=== PATIENT | female | born 1985 | race Caucasian/White ===

== ENCOUNTER 2017-01-21 02:16 | Emergency (ER) | payer MEDICAID, OTHER ==
[2017-01-21] MEDS ORDERED: OLANZapine 10 MG/2 ML VIAL IM ONE ×2 (02:33→02:46)
--- NOTE | 2017-01-21 02:33 | EDPHY ---
H & P - Personal History Tetanus Vaccine Date: <10 years - Medical/Surgical History Hx Asthma: No Hx Chronic Respiratory Disease: No Hx Diabetes: No Hx Cardiac Disease: No Hx Renal Disease: No Hx Cirrhosis: No Hx Alcoholism: No Hx HIV/AIDS: No Hx Splenectomy or Spleen Trauma: No Other PMH: bipolar - Social History Smoking Status: Former smoker Time Seen by Provider: 01/21/17 02:28 HPI/ROS: Chief Complaint: Altered mental status, substance abuse HPI: 31-year-old woman brought in from home with altered mental status. EMS was initially called the son wrist the house for a decreased level consciousness. On arrival patient was waxing and waning be from a decreased level consciousness to being very agitated. Patient admits to using methamphetamine. She has also been using more for trazodone and Seroquel because she has been able to sleep. Patient states she returned from outpatient rehab about a month ago but has since started using methamphetamine again. Denies any suicidal or homicidal ideation at this time. Patient was very agitated for EMS and received 2.5 mg of Versed IV. Denies any fevers or chills. No chest pain shortness of breath. Does have a history of bipolar disorder for which she takes lithium. I reviewed her lithium bottle and there are no missing pills at this time. ROS: 10 point Review of Systems is negative except as noted in the HPI. PMH: Substance abuse Social History: Positive smoking, no alcohol, positive methamphetamine use Family History: non-contributory Physical Exam: Gen: Awake, Alert, agitated, appears under the influence of substances, not able to carry on a conversation HEENT: Nose: no rhinorrhea Eyes: PERRLA, EOMI Mouth: Moist mucosa Neck: Supple, no JVD Chest: nontender, lungs clear to auscultation Heart: S1, S2 normal, no murmur Abd: Soft, non-tender, no guarding Back: no CVA tenderness, no midline tenderness Ext: no edema, non-tender Skin: no rash Neuro: CN II-XII intact, Sensation grossly intact, Strength 5/5 in bilateral upper and lower extremities (Godfrey Juárez) Constitutional: Initial Vital Signs Temperature (C) 36.7 C 01/21/17 02:25 Heart Rate 107 H 01/21/17 02:25 Respiratory Rate 16 01/21/17 02:25 Blood Pressure 116/70 01/21/17 02:25 O2 Sat (%) 97 01/21/17 02:25 O2 Delivery Mode Room Air O2 (L/minute) 2 Allergies/Adverse Reactions: No Known Allergies Allergy (Unverified 01/21/17 02:38) Home Medications: Medication Instructions Recorded [place] Carbonate ER [Eskalith Cr 900 mg PO HS 07/24/15 450 mg (*)] Lurasidone HCl [Latuda] 40 mg PO HS 07/24/15 QUEtiapine FUMARATE [Seroquel 200 700 mg PO HS 07/24/15 mg (*)] metFORMIN HCL [Glucophage 500 mg 1,000 mg PO HS 07/24/15 (*)] Medical Decision Making ED Course/Re-evaluation: Patient has been placed on a detainer by me. Labs have been sent. She is getting agitated and received Zyprexa 10 mg IM. [address] Hyde pending metabolism of methamphetamine and reassessment. (Godfrey Juárez) Other Provider: Patient signed out to me at 0700. On re-evaluation at 930, patient is sober, adamantly denies any suicidal thoughts and would like to go home. She has a friend present in room who will drive her home. Per plan from Dr. Juárez, patient will be discharged home. (Pavan Hyde) - Data Points Laboratory Results: Laboratory Results 01/21/17 02:34 01/21/17 02:34 01/21/17 01/21/17 01/21/17 05:08 02:34 02:34 WBC RBC Hgb Hct MCV MCH MCHC RDW Plt Count MPV Neut % (Auto) Lymph % (Auto) Ramsey % (Auto) Eos % (Auto) Baso % (Auto) Nucleat RBC Rel Count Absolute Neuts (auto) Absolute Lymphs (auto) Absolute Monos (auto) Absolute Eos (auto) Absolute Basos (auto) Absolute Nucleated RBC Immature Gran % Immature Gran # Sodium 140 mEq/L mEq/L (134-144) Potassium 5.1 mEq/L mEq/L (3.5-5.2) Chloride 103 mEq/L mEq/L (97-110) Carbon Dioxide 20 mEq/l L mEq/l (22-31) Anion Gap 17 mEq/L H mEq/L (8-16) BUN 18 mg/dL mg/dL (7-23) Creatinine 1.2 mg/dL H mg/dL (0.6-1.0) Estimated GFR 53 Glucose 78 mg/dL mg/dL (70-100) Calcium 9.8 mg/dL mg/dL (8.5-10.4) Beta HCG, Qual NEGATIVE Urine Opiates Screen NEGATIVE (NEGATIVE) Acetaminophen < 10 mcg/mL L mcg/mL (10-30) Urine Barbiturates NEGATIVE (NEGATIVE) Ur Phencyclidine Scrn NEGATIVE (NEGATIVE) Ur Amphetamine Screen NON-NEGATIVE H (NEGATIVE) U Benzodiazepines Scrn NEGATIVE (NEGATIVE) [place] 0.4 mEq/L L mEq/L (0.6-1.2) Urine Cocaine Screen NEGATIVE (NEGATIVE) U Marijuana (THC) Screen NON-NEGATIVE H (NEGATIVE) Ethyl Alcohol < 10 mg/dL mg/dL (0-10) 01/21/17 02:34 WBC 9.20 10^3/uL 10^3/uL (3.80-9.50) RBC 4.44 10^6/uL 10^6/uL (4.18-5.33) Hgb 13.3 g/dL g/dL (12.6-16.3) Hct 41.1 % % (38.0-47.0) MCV 92.6 fL fL (81.5-99.8) MCH 30.0 pg pg (27.9-34.1) MCHC 32.4 g/dL g/dL (32.4-36.7) RDW 13.2 % % (11.5-15.2) Plt Count 263 10^3/uL 10^3/uL (150-400) MPV 9.7 fL fL (8.7-11.7) Neut % (Auto) 35.4 % L % (39.3-74.2) Lymph % (Auto) 50.9 % H % (15.0-45.0) Ramsey % (Auto) 11.1 % % (4.5-13.0) Eos % (Auto) 1.6 % % (0.6-7.6) Baso % (Auto) 0.7 % % (0.3-1.7) Nucleat RBC Rel Count 0.0 % % (0.0-0.2) Absolute Neuts (auto) 3.26 10^3/uL 10^3/uL (1.70-6.50) Absolute Lymphs (auto) 4.68 10^3/uL H 10^3/uL (1.00-3.00) Absolute Monos (auto) 1.02 10^3/uL H 10^3/uL (0.30-0.80) Absolute Eos (auto) 0.15 10^3/uL 10^3/uL (0.03-0.40) Absolute Basos (auto) 0.06 10^3/uL 10^3/uL (0.02-0.10) Absolute Nucleated RBC 0.00 10^3/uL 10^3/uL (0-0.01) Immature Gran % 0.3 % % (0.0-1.1) Immature Gran # 0.03 10^3/uL 10^3/uL (0.00-0.10) Sodium Potassium Chloride Carbon Dioxide Anion Gap BUN Creatinine Estimated GFR Glucose Calcium Beta HCG, Qual Urine Opiates Screen Acetaminophen Urine Barbiturates Ur Phencyclidine Scrn Ur Amphetamine Screen U Benzodiazepines Scrn [place] Urine Cocaine Screen U Marijuana (THC) Screen Ethyl Alcohol Medications Given: Discontinued Medications Olanzapine (Zyprexa Im Injection) 10 mg IM EDNOW ONE Stop: 01/21/17 02:47 Last Admin: 01/21/17 02:47 Dose: 10 mg Departure - Departure Disposition: Home, Routine, Self-Care Clinical Impression: Methamphetamine abuse Condition: Good Instructions: Polysubstance Abuse (ED) Additional Instructions: 1. Please refrain from abusing drugs. 2. Return for any worsening of condition or further concerns. Referrals: Patient,NotPresent [Unknown] - As per Instructions
[2017-01-21 02:37] LABS: % IMMATURE GRANULYOCYTES 0.3 % (0.0-1.1); ABSOLUTE IMMATURE GRANULOCYTES 0.03 10^3/uL (0.00-0.10); ADD DIFF? NO; ADD MORPH? NO; ADD SCAN? NO; ATYPICAL LYMPHOCYTE FLAG 50 (0-99); FRAGMENT RBC FLAG 0 (0-99); HEMATOCRIT 41.1 % (38.0-47.0); HEMOGLOBIN 13.3 g/dL (12.6-16.3); LEFT SHIFT FLG 0 (0-99); LIPEMIA HEMOLYSIS FLAG 80 (0-99); MEAN CELL HEMOGLOBIN CONCENTR. 32.4 g/dL (32.4-36.7); MEAN CELL VOLUME 92.6 fL (81.5-99.8); MEAN PLATELET VOLUME 9.7 fL (8.7-11.7); PLATELET CLUMPS FLAG 10 (0-99); PLATELET COUNT 263 10^3/uL (150-400); RED BLOOD CELL COUNT 4.44 10^6/uL (4.18-5.33); RED CELL DISTRIBUTION WIDTH 13.2 % (11.5-15.2)
[2017-01-21 02:40] VITALS: TEMP 98.1
[2017-01-21 02:56] LABS: ANION GAP 17 mEq/L (8-16); CALCIUM 9.8 mg/dL (8.5-10.4); CARBON DIOXIDE 20 mEq/l (22-31); CHLORIDE 103 mEq/L (97-110); CREATININE 1.2 mg/dL (0.6-1.0); ETHANOL SERUM < 10 mg/dL (0-10); GLOMERULAR FILTRATION RATE 53; GLUCOSE 78 mg/dL (70-100); LITHIUM 0.4 mEq/L (0.6-1.2); POTASSIUM 5.1 mEq/L (3.5-5.2); SODIUM 140 mEq/L (134-144)
[2017-01-21 08:33] VITALS: BP 126/72; PULSE 70; RESP 14; O2SAT 97
== END 2017-01-21 09:36 | disposition home or self-care (01) ==
LOC: EDUNIT#
DX: F15.10 Other stimulant abuse, uncomplicated (principal); Z87.891 Personal history of nicotine dependence
CPT/HCPCS: 80305; G0480

== ENCOUNTER 2017-03-03 17:55 | Emergency (ER) | payer MEDICAID ==
[2017-03-03] MEDS ORDERED: LORazepam 2 MG/ML INJ IVP ONE ×4 (18:08→20:49)
[2017-03-03] MEDS ORDERED: ONDANSETRON 4 MG/2 ML VIAL IVP ONE (18:18)
--- NOTE | 2017-03-03 18:18 | EDPHY ---
H & P Smoking Status: Former smoker Time Seen by Provider: 03/03/17 18:02 HPI/ROS: Chief complaint. Agitation HPI. 31-year-old female with history of polysubstance abuse presents emergency department with anxiety, agitation. Last use of methamphetamine and heroin was 2 days ago after 2 months of moderate use. She has mostly been using her her bipolar medication. She also has been smoking marijuana trying to alleviate her withdrawal symptoms. She had some vomiting and diarrhea today. Otherwise not ill with fever or cough. No chest discomfort or trouble breathing. Crampy abdominal pain. Denies injuries. She has had similar symptoms previously ROS Constitutional. Agitation Eyes. no problems with vision ENT. no sore throat, no nasal drainage Cardiovascular. no chest pain Respiratory. no shortness of breath, no cough Abdominal. Crampy abdominal pain vomiting and diarrhea . no problems urinating MS. no calf pain/swelling, no neck/back pain, no joint pain Skin. no rash Lymph. no swollen glands Neuro. no headache, no dizziness, no difficulty walking or with speech (Sanford Gu) Past Medical/Surgical History: Bipolar illness (Sanford Gu) Social History: Single, nonsmoker, no recent alcohol (Sanford Gu) Physical Exam: General Appearance: Alert, agitated well-developed female moderate distress. Vital signs are stable Eyes: Pupils equal and round no pallor or injection. ENT, Mouth: Mucous membranes are moist. Respiratory: There are no retractions, lungs are clear to auscultation. Cardiovascular: Regular rate and rhythm. Gastrointestinal: Abdomen is soft and nontender, no masses, bowel sounds normal. Neurological: Awake and alert, sensory and motor exams grossly normal. Skin: Warm and dry, no rashes. Musculoskeletal: Neck is supple nontender. Extremities symmetrical, full range of motion. Psychiatric: Patient is oriented. There is agitation (Sanford Gu) Constitutional: Initial Vital Signs Temperature (C) 36.8 C 03/03/17 18:06 Heart Rate 81 03/03/17 18:06 Respiratory Rate 15 03/03/17 18:06 Blood Pressure 136/93 H 03/03/17 18:06 O2 Sat (%) 100 03/03/17 18:06 O2 Delivery Mode Room Air Allergies/Adverse Reactions: No Known Allergies Allergy (Verified 03/03/17 18:05) Home Medications: Medication Instructions Recorded [place] Carbonate ER [Eskalith Cr 900 mg PO BID 07/24/15 450 mg (*)] QUEtiapine FUMARATE [Seroquel 200 50 mg PO HS 07/24/15 mg (*)] Promethazine HCl [Phenergan 25mg 25 mg PO TID PRN #10 tab 03/03/17 (*)] clonIDINE [Catapres (*)] 0.1 mg PO TID #15 tab 03/03/17 traZODone 100 mg PO DAILY AT 9PM 03/03/17 Medical Decision Making Procedures: IV normal saline. Ativan and Zofran (Sanford Gu) ED Course/Re-evaluation: Patient has been given multiple rounds of Ativan IV. She is now calm and sleeping. She is placed on a detained in her for mental health evaluation. Re-evaluation again at 9:00 p.m. and patient is vomiting and agitated. She is given Phenergan and IV Ativan. She is placed on an M1 hold by me House mate who is with her is going to go home and collect her medications to give specific doses especially her nighttime bipolar illness doses. She will be given her doses Patient given her nighttime meds which include Seroquel 50 mg, trazodone 100 mg , lithium 450 mg (Sanford Gu) 5:40 a.m.- Patient has been stable during my shift sleeping for the most part. She is now awake and conversant. Family will come to pick her up from the emergency department. (Yarelis Ross) 10:00 p.m.-I assumed care of this patient at shift change. Patient is on an M1 hold for grave disability . 10:40 p.m.-patient's nurse discussed the patient with me. She has a history of heroin abuse and now is in heroin withdrawal. She came to the emergency department because she wished to be helped with her heroin withdrawal. She denies suicidal or homicidal ideation. I spoke with the patient. She is now quite drowsy after receiving Ativan 1 mg IV x4. She would like to have outpatient treatment of heroin withdrawal. I gave her a dose of clonidine 0.1 mg orally. Because of her drowsiness, she is not ready to leave the emergency department now. I have spoken with the ED charge nurse and will watch the patient in the emergency department tonight until she is more alert. At that point, we will consider discharging her home on Phenergan, clonidine and possibly Valium for opiate withdrawal. I do not feel that this patient meets criteria for a 72 hour mental health hold. I vacated the mental health hold. ( Lilia Valencia) Differential Diagnosis: Polysubstance abuse with ingestion and now withdrawal by history. History of bipolar illness. Not able to care for herself. Mental health evaluation is pending (Sanford Gu) Care Turn Over: Dr. Valencia at 2130 (Sanford Gu) - Data Points Laboratory Results: Laboratory Results 03/03/17 17:45 03/03/17 17:45 Medications Given: Discontinued Medications Clonidine (Catapres) 0.1 mg PO EDNOW ONE Stop: 03/03/17 22:40 Last Admin: 03/03/17 22:42 Dose: 0.1 mg Sodium Chloride (Ns) 1,000 mls @ 0 mls/hr IV ONCE ONE; Wide Open PRN Reason: Protocol Stop: 03/03/17 20:46 Last Admin: 03/03/17 20:48 Dose: 1,000 mls [place] Carbonate ([place] Carbonate) 450 mg PO BID LYNETTE Stop: 08/30/17 21:29 Last Admin: 03/03/17 22:24 Dose: 450 mg Lorazepam (Ativan Injection) 1 mg IVP EDNOW ONE Stop: 03/03/17 18:09 Last Admin: 03/03/17 18:11 Dose: 1 mg Lorazepam (Ativan Injection) 1 mg IVP EDNOW ONE Stop: 03/03/17 18:55 Last Admin: 03/03/17 18:57 Dose: 1 mg Lorazepam (Ativan Injection) 1 mg IVP EDNOW ONE Stop: 03/03/17 19:26 Last Admin: 03/03/17 19:27 Dose: 1 mg Lorazepam (Ativan Injection) 1 mg IVP EDNOW ONE Stop: 03/03/17 20:50 Last Admin: 03/03/17 20:53 Dose: 1 mg Ondansetron HCl (Zofran) 4 mg IVP EDNOW ONE Stop: 03/03/17 18:19 Last Admin: 03/03/17 18:32 Dose: 4 mg Promethazine HCl (Phenergan) 12.5 mg IVP ONCE ONE Stop: 03/03/17 20:50 Last Admin: 03/03/17 20:53 Dose: 12.5 mg Quetiapine Fumarate (Seroquel) 50 mg PO ONCE ONE Stop: 03/03/17 21:30 Last Admin: 03/03/17 22:24 Dose: 50 mg Trazodone HCl (Trazodone) 100 mg PO HS LYNETTE Stop: 08/30/17 21:29 Last Admin: 03/03/17 22:24 Dose: 100 mg Departure - Departure Disposition: Home, Routine, Self-Care Clinical Impression: Polysubstance abuse, Heroin withdrawal Bipolar illness Qualifiers: Active/Remission status: currently active Current bipolar episode type: mixed Current episode severity: severe Psychotic features: without psychotic features Qualified Code(s): F31.63 - Bipolar disorder, current episode mixed, severe, without psychotic features Condition: Fair Instructions: Narcotic Abuse (ED) Additional Instructions: For heroin withdrawal resources, go to [email or web address]. Referrals: [facility] [Clinic] - As per Instructions KEYONNA LYNCH [Medical Doctor] - 2-3 days without fail Prescriptions: clonIDINE [Catapres (*)] 0.1 mg PO TID #15 tab Promethazine HCl [Phenergan 25mg (*)] 25 mg PO TID PRN #10 tab PRN Reason: nausea
[2017-03-03 18:23] LABS: % IMMATURE GRANULYOCYTES 0.4 % (0.0-1.1); ABSOLUTE IMMATURE GRANULOCYTES 0.05 10^3/uL (0.00-0.10); ADD DIFF? NO; ADD MORPH? NO; ADD SCAN? NO; ATYPICAL LYMPHOCYTE FLAG 20 (0-99); FRAGMENT RBC FLAG 0 (0-99); HEMATOCRIT 44.9 % (38.0-47.0); LEFT SHIFT FLG 0 (0-99); LIPEMIA HEMOLYSIS FLAG 80 (0-99); MEAN CELL HEMOGLOBIN 29.7 pg (27.9-34.1); MEAN CELL HEMOGLOBIN CONCENTR. 33.4 g/dL (32.4-36.7); MEAN CELL VOLUME 88.9 fL (81.5-99.8); MEAN PLATELET VOLUME 10.3 fL (8.7-11.7); PLATELET CLUMPS FLAG 30 (0-99); PLATELET COUNT 333 10^3/uL (150-400); RED BLOOD CELL COUNT 5.05 10^6/uL (4.18-5.33); RED CELL DISTRIBUTION WIDTH 13.1 % (11.5-15.2)
[2017-03-03 18:36] LABS: ANION GAP 14 mEq/L (8-16); CALCIUM 10.6 mg/dL (8.5-10.4); CARBON DIOXIDE 20 mEq/l (22-31); CHLORIDE 106 mEq/L (97-110); CREATININE 0.8 mg/dL (0.6-1.0); ETHANOL SERUM < 10 mg/dL (0-10); GLOMERULAR FILTRATION RATE > 60; GLUCOSE 108 mg/dL (70-100); LITHIUM 0.8 mEq/L (0.6-1.2); POTASSIUM 4.3 mEq/L (3.5-5.2); SODIUM 140 mEq/L (134-144)
[2017-03-03 20:18] VITALS: O2SAT 96
[2017-03-03] MEDS ORDERED: NS 1,000 ML IV ONE (20:45)
[2017-03-03] MEDS ORDERED: PROMETHAZINE HCL 25 MG/ML INJ IVP ONE (20:49)
[2017-03-03] MEDS ORDERED: QUEtiapine FUMARATE 50 MG TAB PO ONE (21:29)
[2017-03-03] MEDS ORDERED: traZODone 100 MG TAB PO SCH (21:30)
[2017-03-03] MEDS ORDERED: LITHIUM CARBONATE 300 MG TAB PO SCH (21:30)
[2017-03-04 06:08] VITALS: BP 119/75; PULSE 76; RESP 16; TEMP 97.7
== END 2017-03-04 06:08 | disposition home or self-care (01) ==
LOC: EDUNIT#
DX: F31.63 Bipolar disorder, current episode mixed, severe, without psychotic features (principal); F19.10 Other psychoactive substance abuse, uncomplicated; F11.23 Opioid dependence with withdrawal; E86.9 Volume depletion, unspecified; Z87.891 Personal history of nicotine dependence
CPT/HCPCS: 96374; G0480; J2060; J2405; J2550

== ENCOUNTER 2017-11-21 10:52 | Emergency (ER) | payer MEDICAID ==
[2017-11-21] MEDS ORDERED: NS 1,000 ML IV ONE ×2 (12:29→14:58)
[2017-11-21] MEDS ORDERED: METOCLOPRAMIDE 10 MG/2 ML VIAL IVP ONE (12:49)
[2017-11-21] MEDS ORDERED: PANTOPRAZOLE SODIUM 40 MG VIAL IVP ONE (12:49)
--- NOTE | 2017-11-21 12:49 | EDPHY ---
General - History Smoking Status: Former smoker Time Seen by Provider: 11/21/17 12:40 Narrative: CHIEF COMPLAINT: Nausea, vomiting, abdominal pain HISTORY OF PRESENT ILLNESS: Patient complains of epigastric pain and nausea with vomiting. Symptoms started Tuesday afternoon after eating some shrimp. She says she had multiple episodes of vomiting that was green and yellow. No blood in it. No diarrhea. She did develop some epigastric pain over the past 2 days. It has been constant duration. Worse with intake by mouth. Minimal improvement after vomiting and when NPO. No fever chills but no trauma injury. No constipation or diarrhea. No other associated complaints or modifying factors. REVIEW OF SYSTEMS: Ten systems reviewed and are negative unless otherwise noted in the HPI PCP: None SPECIALISTS: None PAST MEDICAL HISTORY: Bipolar disorder, previous substance abuse PAST SURGICAL HISTORY: No recent surgeries SOCIAL HISTORY: Nonsmoker. Occasional alcohol. Occasional marijuana use. Previously a user of heroin, sober since 2016 FAMILY HISTORY: Noncontributory EXAMINATION General Appearance: Alert, no distress. Well-developed well-nourished Head: normocephalic, atraumatic Eyes: Pupils equal and round, no conjunctival pallor or injection ENT, Mouth: Mucous membranes moist. Neck: Normal inspection, supple, non-tender Respiratory: Lungs are clear to auscultation. No wheezing, rhonchi or crackles Cardiovascular: Regular rate and rhythm. No murmur Gastrointestinal: Abdomen is soft and nondistended. There is mild epigastric tenderness. No guarding. No tympany. No rigidity. No CVA tenderness. Back: non-tender, no bony abnormalities Neurological: A&O, nonfocal, normal gait Skin: Warm and dry, no rash Extremities: Nontender, no pedal edema Psychiatric: Mood and affect normal DIFFERENTIAL DIAGNOSES: Including but not limited to pancreatitis, cholecystitis, cholelithiasis, colitis, gastritis, food-borne illness, gastroenteritis, enteritis MDM: 12:45 p.m. Nausea, vomiting and epigastric pain since Tuesday evening. Abdominal exam is nonacute. Vital signs within normal limits. I have ordered symptomatic medications and Laboratory studies. She may need imaging, but I do not feel she needs emergent imaging at this time. I will re-evaluate after response to medications and laboratory studies returned. 2:30 p.m. Patient re-evaluated. Laboratory studies are unremarkable. She is still complaining of nausea but no pain. Her abdominal exam remains benign. I have ordered further medication and will re-evaluate. 3:25 p.m. Patient re-evaluated. She has tolerated the GI cocktail and promethazine and feels significantly better. She is drinking water without difficulty. She has no abdominal pain. We discussed discharge home with treatment for possible suspected gastritis. We discussed clear liquid diet, slowly advancing as tolerated. We discussed referral to the on-call primary care physician and the on-call interior design assistant. We discussed returning here if she does not have complete resolution of her symptoms within 24 hr. She is comfortable this plan and discharged home stable condition. SUPERVISION: Patient was independently examined, but I discussed the case with my secondary supervising physician Dr. Tucker ([facility]) The patient was evaluated and managed by the physician assistant boys track coach. I have reviewed this chart and I agree with the findings and plan of care as documented , as indicated by my signature. I am the secondary supervising physician. ( Betzy Tucker) - Objective Vital Signs: Initial Vital Signs Temperature (C) 37 C 11/21/17 10:53 Heart Rate 84 11/21/17 10:53 Respiratory Rate 16 11/21/17 10:53 Blood Pressure 113/88 H 11/21/17 10:53 O2 Sat (%) 97 11/21/17 10:53 O2 Delivery Mode Room Air Allergies/Adverse Reactions: No Known Allergies Allergy (Verified 11/22/17 07:01) Home Medications: Medication Instructions Recorded [place] Carbonate ER [Eskalith Cr 900 mg PO BID 07/24/15 450 mg (*)] QUEtiapine FUMARATE [Seroquel 200 50 mg PO HS 07/24/15 mg (*)] Promethazine HCl [Phenergan 25mg 25 mg PO TID PRN #10 tab 03/03/17 (*)] Ondansetron Odt [Zofran Odt 4 mg 4 mg PO Q6 PRN #12 tab 11/21/17 (*)] Promethazine HCl [Phenergan 25mg 25 mg PO Q8 PRN #12 tab 11/21/17 (*)] Sucralfate [Carafate Oral Liquid 10 ml PO QID PRN #240 ml 11/21/17 100 mg/ml] Laboratory Results: Laboratory Results 11/21/17 13:11 11/21/17 13:00 Medications Given: Discontinued Medications Al Hydroxide/Mg Hydroxide (Maalox Susp) 30 ml PO ONCE ONE Stop: 11/21/17 14:38 Last Admin: 11/21/17 14:48 Dose: 30 ml Diphenhydramine HCl (Benadryl Injection) 25 mg IVP EDNOW ONE Stop: 11/21/17 12:50 Last Admin: 11/21/17 12:58 Dose: 25 mg Hyoscyamine Sulfate (Levsin, Hyomax-Sl) 0.25 mg PO ONCE ONE Stop: 11/21/17 14:38 Last Admin: 11/21/17 14:48 Dose: 0.25 mg Sodium Chloride (Ns) 1,000 mls @ 0 mls/hr IV ONCE ONE; Wide Open PRN Reason: Protocol Stop: 11/21/17 12:30 Last Admin: 11/21/17 12:40 Dose: 1,000 mls Sodium Chloride (Ns) 1,000 mls @ 0 mls/hr IV EDNOW ONE; Wide Open PRN Reason: Protocol Stop: 11/21/17 14:59 Last Admin: 11/21/17 15:07 Dose: 1,000 mls Lidocaine (Lidocaine 2% Viscous) 15 ml PO ONCE ONE Stop: 11/21/17 14:38 Last Admin: 11/21/17 14:48 Dose: 15 ml Metoclopramide HCl (Reglan Injection) 10 mg IVP EDNOW ONE Stop: 11/21/17 12:50 Last Admin: 11/21/17 12:58 Dose: 10 mg Pantoprazole Sodium (Protonix) 40 mg IVP EDNOW ONE Stop: 11/21/17 12:50 Last Admin: 11/21/17 12:59 Dose: 40 mg Promethazine HCl (Phenergan) 12.5 mg IVP ONCE ONE Stop: 11/21/17 14:38 Last Admin: 11/21/17 14:47 Dose: 12.5 mg Departure - Departure Disposition: Home, Routine, Self-Care Clinical Impression: Acute gastritis, Epigastric pain, Nausea & vomiting Condition: Good Instructions: Gastritis (ED), Clear Liquid Diet (ED), Epigastric Pain (ED) Additional Instructions: 1. Clear liquid diet, advancing slowly as tolerated 2. Nausea medications as provided and prescribed as needed 3. Carafate as prescribed as needed. Do not take with any other medications 4. Contact the on-call primary care physician as provided 5. Contact the on-call GI physician as provided 6. I would like you to return to this emergency department in 24 hr if you do not have complete resolution of her symptoms. I would like you to return sooner for any Worsening of symptoms or intolerance of liquids by mouth Referrals: Pablo Pacheco MD [Medical Doctor] - As per Instructions Ihsan Stark MD [[facility] [place] Primary Care Provider] - As per Instructions Prescriptions: Ondansetron Odt [Zofran Odt 4 mg (*)] 4 mg PO Q6 PRN #12 tab PRN Reason: Nausea/Vomiting, Use 1st Promethazine HCl [Phenergan 25mg (*)] 25 mg PO Q8 PRN #12 tab PRN Reason: Nausea/Vomiting, Use 1st Sucralfate [Carafate Oral Liquid 100 mg/ml] 10 ml PO QID PRN #240 ml PRN Reason: abdominal pain
[2017-11-21 13:17] LABS: PLATELET COUNT 378 10^3/uL (150-400)
[2017-11-21] MEDS ORDERED: MAG HYDROX/AL HYDROX/SIMETH 30 ML UDCUP PO ONE (14:37)
[2017-11-21] MEDS ORDERED: LIDOCAINE 2% VISCOUS 15 ML UDCUP PO ONE (14:37)
[2017-11-21] MEDS ORDERED: HYOSCYAMINE SULFATE 0.125 MG TAB PO ONE (14:37)
[2017-11-21] MEDS ORDERED: PROMETHAZINE HCL 25 MG/ML INJ IVP ONE (14:37)
[2017-11-21 16:01] VITALS: BP 140/94
== END 2017-11-21 16:01 | disposition home or self-care (01) ==
DX: K29.00 Acute gastritis without bleeding (principal); E86.9 Volume depletion, unspecified
CPT/HCPCS: 96374; G0480; J1200; J2550; J2765

== ENCOUNTER 2017-11-22 06:56 | Emergency (ER) | payer MEDICAID ==
--- NOTE | 2017-11-22 07:16 | EDPHY ---
HPI/HX/ROS/PE/MDM Narrative: CHIEF COMPLAINT: Nausea / Vomiting HPI: This patient is a 31 year old female with history of bipolar disorder and prior substance abuse. She returns to the emergency department today for evaluation of nausea, vomiting, and sharp epigastric pain. He symptoms began , 11/17, after eating shrimp. She has had multiple episodes of greenish yellow emesis. Yesterday, she was evaluated for similar symptoms and discharged home in good condition following relief of her discomfort with a GI cocktail and promethazine. Last night, she was able to eat some broth and water. Overnight, she woke with recurrent nausea and epigastric pains. She had further episodes of vomiting which were not relieved with oral Zofran. She denies hematemesis, diarrhea, hematochezia, melena, or other associated symptoms. No history of abdominal surgery. No fever or recent trauma or other illness. REVIEW OF SYSTEMS: Aside from elements discussed in the HPI, a comprehensive 10-point review of systems was reviewed and is negative. PMH: Bipolar disorder, previous substance abuse SOCIAL HISTORY: Friend at bedside. Nonsmoker. Occasional alcohol and marijuana use. History of heroin abuse, sober since 05/2017. PHYSICAL EXAM: General:Patient is alert, in no acute distress. ENT:Eyes are normal to inspection. ENT inspection normal. Neck: Normal inspection. Full range of motion. Respiratory:No respiratory distress. Breath sounds normal bilaterally. Cardiovascular: Regular rate and rhythm. Strong peripheral pulses. Normal cap refill. Abdomen: Moderate epigastric tenderness. There are no peritoneal signs. There are normal bowel sounds. Back: Normal to inspection. No tenderness to palpation. Skin: Normal color. No rash. Warm and dry. Extremities: Normal appearance. Full range of motion. Neuro: Oriented x3. Normal motor function. Normal sensory function. ED Course: 31 year old female returns to the emergency department with nausea and vomiting. Abdominal exam reveals moderate epigastric tenderness. Plan for labs including CBC, chemistries, liver, lipase, UA. Plan to administer 1L IV NS, 4mg IV Zofran, and 30mg IV Ketorolac for symptom relief. Reviewed past medical records. During yesterday's evaluation in this emergency department, no imaging studies were completed as the patient's abdominal exam was benign at that time. Plan for US abdomen or CT abdomen for further evaluation, pending lab results. 08:05 Patient states her nausea is not relieved with Zofran. Plan to administer 2.5mg IV Haldol. Laboratory studies unremarkable. Plan to proceed with CT abdomen/pelvis for further evaluation. 08:[address] Beltran, radiologist. CT negative for acute processes. 11:30 The patient is now feeling well and would like to go home. Plan to discharge home in good condition. Follow up and return precautions discussed. She is comfortable with this plan. - Data Points Imaging Results: Imaging Impressions Abdomen CT 11/22/17 08:11 Impression: Negative evaluation for appendicitis or other acute intra-abdominal pathology. Findings were communicated by telephone with Dr. Hyde at 11/22/2017 8:53 Imaging: Discussed imaging studies w/ crew caller Radiologist Laboratory Results: Laboratory Results 11/22/17 07:30 11/22/17 07:30 11/22/17 11/22/17 11/22/17 09:18 07:30 07:30 WBC 8.43 10^3/uL 10^3/uL (3.80-9.50) RBC 4.35 10^6/uL 10^6/uL (4.18-5.33) Hgb 12.9 g/dL g/dL (12.6-16.3) Hct 37.9 % L % (38.0-47.0) MCV 87.1 fL fL (81.5-99.8) MCH 29.7 pg pg (27.9-34.1) MCHC 34.0 g/dL g/dL (32.4-36.7) RDW 13.1 % % (11.5-15.2) Plt Count 290 10^3/uL 10^3/uL (150-400) MPV 9.5 fL fL (8.7-11.7) Neut % (Auto) 66.4 % % (39.3-74.2) Lymph % (Auto) 24.8 % % (15.0-45.0) Bureau % (Auto) 7.4 % % (4.5-13.0) Eos % (Auto) 0.5 % L % (0.6-7.6) Baso % (Auto) 0.5 % % (0.3-1.7) Nucleat RBC Rel Count 0.0 % % (0.0-0.2) Absolute Neuts (auto) 5.61 10^3/uL 10^3/uL (1.70-6.50) Absolute Lymphs (auto) 2.09 10^3/uL 10^3/uL (1.00-3.00) Absolute Monos (auto) 0.62 10^3/uL 10^3/uL (0.30-0.80) Absolute Eos (auto) 0.04 10^3/uL 10^3/uL (0.03-0.40) Absolute Basos (auto) 0.04 10^3/uL 10^3/uL (0.02-0.10) Absolute Nucleated RBC 0.00 10^3/uL 10^3/uL (0-0.01) Immature Gran % 0.4 % % (0.0-1.1) Immature Gran # 0.03 10^3/uL 10^3/uL (0.00-0.10) Sodium 141 mEq/L mEq/L (135-145) Potassium 3.3 mEq/L mEq/L (3.3-5.0) Chloride 103 mEq/L mEq/L (97-110) Carbon Dioxide 22 mEq/l mEq/l (22-31) Anion Gap 16 mEq/L mEq/L (8-16) BUN 12 mg/dL mg/dL (7-23) Creatinine 0.8 mg/dL mg/dL (0.6-1.0) Estimated GFR > 60 Glucose 103 mg/dL H mg/dL (70-100) Calcium 9.5 mg/dL mg/dL (8.5-10.4) Total Bilirubin 1.1 mg/dL mg/dL (0.1-1.4) Conjugated Bilirubin 0.4 mg/dL mg/dL (0.0-0.5) Unconjugated Bilirubin 0.7 mg/dL mg/dL (0.0-1.1) AST 16 IU/L IU/L (14-46) ALT 20 IU/L IU/L (9-52) Alkaline Phosphatase 52 IU/L IU/L (38-126) Total Protein 7.1 g/dL g/dL (6.3-8.2) Albumin 4.2 g/dL g/dL (3.5-5.0) Lipase 213 IU/L IU/L (23-300) Urine Color YELLOW Urine Appearance HAZY Urine pH 8.0 H (5.0-7.5) Ur Specific [place] 1.018 (1.002-1.030) Urine Protein NEGATIVE (NEGATIVE) Urine Ketones NEGATIVE (NEGATIVE) Urine Blood NEGATIVE (NEGATIVE) Urine Nitrate NEGATIVE (NEGATIVE) Urine Bilirubin NEGATIVE (NEGATIVE) Urine Urobilinogen NEGATIVE EU EU (0.2-1.0) Ur Leukocyte Esterase NEGATIVE (NEGATIVE) Urine Glucose NEGATIVE (NEGATIVE) Medications Given: Discontinued Medications Haloperidol Lactate (Haldol Injection) 2.5 mg IVP EDNOW ONE Stop: 11/22/17 08:08 Last Admin: 11/22/17 08:12 Dose: 2.5 mg Haloperidol Lactate (Haldol Injection) 2.5 mg IVP EDNOW ONE Stop: 11/22/17 10:51 Last Admin: 11/22/17 10:51 Dose: 2.5 mg Sodium Chloride (Ns) 1,000 mls @ 0 mls/hr IV EDNOW ONE; Wide Open PRN Reason: Protocol Stop: 11/22/17 07:18 Last Admin: 11/22/17 07:37 Dose: 1,000 mls Ketorolac Tromethamine (Toradol) 30 mg IVP EDNOW ONE Stop: 11/22/17 07:35 Last Admin: 11/22/17 07:37 Dose: 30 mg Ondansetron HCl (Zofran) 4 mg IVP EDNOW ONE Stop: 11/22/17 07:35 Last Admin: 11/22/17 07:37 Dose: 4 mg General Initial Vital Signs: Initial Vital Signs Temperature (C) 37.1 C 11/22/17 06:59 Heart Rate 81 11/22/17 06:59 Respiratory Rate 16 11/22/17 06:59 Blood Pressure 134/97 H 11/22/17 06:59 O2 Sat (%) 96 11/22/17 06:59 O2 Delivery Mode Room Air Allergies/Adverse Reactions: No Known Allergies Allergy (Verified 11/22/17 07:01) Home Medications: Medication Instructions Recorded [place] Carbonate ER [Eskalith Cr 900 mg PO BID 07/24/15 450 mg (*)] QUEtiapine FUMARATE [Seroquel 200 50 mg PO HS 07/24/15 mg (*)] Promethazine HCl [Phenergan 25mg 25 mg PO TID PRN #10 tab 03/03/17 (*)] Ondansetron Odt [Zofran Odt 4 mg 4 mg PO Q6 PRN #12 tab 11/21/17 (*)] Promethazine HCl [Phenergan 25mg 25 mg PO Q8 PRN #12 tab 11/21/17 (*)] Sucralfate [Carafate Oral Liquid 10 ml PO QID PRN #240 ml 11/21/17 100 mg/ml] Departure - Departure Disposition: Home, Routine, Self-Care Clinical Impression: Vomiting Qualifiers: Vomiting type: unspecified Vomiting Intractability: non-intractable Nausea presence: with nausea Qualified Code(s): R11.2 - Nausea with vomiting, unspecified Condition: Good Instructions: Acute Nausea and Vomiting (ED) Additional Instructions: 1. Increase fluid intake. Follow a clear liquid diet at first and then introduce bland foods as tolerated. 2. Follow-up with your primary doctor in 2-3 days. 3. Return to the Emergency Department for fever, uncontrollable vomiting or diarrhea, chest pain, shortness of breath, increasing pain, or other worsening of condition. Referrals: Pablo Pacheco MD [Medical Doctor] - As per Instructions Ihsan Stark MD [[facility] [place] Primary Care Provider] - As per Instructions Report Scribed for: Pavan Hyde Report Scribed by: Janette Calhoun Date of Report: 11/22/17 Time of Report: 07:15 Physician Review and Approval Statement: Portions of this note were transcribed by an ED scribe. I personally performed the history, physical exam, and medical decision making; and confirm the accuracy of the information in the transcribed note.
[2017-11-22] MEDS ORDERED: NS 1,000 ML IV ONE (07:17)
[2017-11-22] MEDS ORDERED: KETOROLAC 30 MG/1 ML SDV IVP ONE (07:34)
[2017-11-22] MEDS ORDERED: ONDANSETRON 4 MG/2 ML VIAL IVP ONE (07:34)
[2017-11-22 07:54] LABS: PLATELET COUNT 290 10^3/uL (150-400)
[2017-11-22] MEDS ORDERED: HALOPERIDOL LACT 5 MG/ML INJ IVP ONE ×2 (08:07→10:50)
[2017-11-22] MEDS ORDERED: IOPAMIDOL (ISOVUE-300) 100 ML BTL ONE (08:25)
[2017-11-22] MEDS ORDERED: HALOPERIDOL LACT 5 MG/ML INJ ONE (10:49)
[2017-11-22 11:38] VITALS: BP 139/94
== END 2017-11-22 11:48 | disposition home or self-care (01) ==
DX: R11.2 Nausea with vomiting, unspecified (principal); E86.9 Volume depletion, unspecified
CPT/HCPCS: 96374; J1630; J1885; J2405; Q9967

== ENCOUNTER 2017-11-27 07:21 | Emergency (ER) | payer MEDICAID ==
--- NOTE | 2017-11-27 07:46 | EDPHY ---
H & P Time Seen by Provider: 11/27/17 07:40 HPI/ROS: CHIEF COMPLAINT: Vomiting HISTORY OF PRESENT ILLNESS: Patient is a 31-year-old female who presents emergency department"the same as the last time."Patient states she has epigastric discomfort. She has had numerous episodes of nonbloody emesis. Patient denies fevers or chills. No dysuria frequency. No diarrhea. The patient states she smoked THC to try to help her symptoms. She smokes THC regularly. REVIEW OF SYSTEMS: My complete review of systems is negative except as mentioned in the HPI. Past Medical/Surgical History: Includes bipolar disorder, previous substance abuse including methamphetamine and heroin. She denies methamphetamine and heroin at this time. Smoking Status: Former smoker Physical Exam: Vitals noted GENERAL: Mildly anxious, no acute distress, alert. HEENT: Eyes normal to inspection, normal pharynx, no signs of dehydration. NECK: No thyromegaly, no lymphadenopathy, supple. RESPIRATORY: Clear to auscultation bilaterally, no rales, rhonchi or wheezing. CVS: Regular rate and rhythm, no rubs, murmurs, or gallops. ABDOMEN: Soft, nontender, nondistended, no organomegaly. Benign BACK: Normal to inspection, no CVA tenderness. SKIN: Normal color, no rash, warm, dry. No pallor. EXTREMITIES: No pedal edema, no calf tenderness, no Homans sign or cords, no joint swelling. NEURO/PSYCH: Alert and oriented, normal mood and affect, normal motor sensory exam. Constitutional: Initial Vital Signs Temperature (C) 37.1 C 11/27/17 07:23 Heart Rate 89 11/27/17 07:23 Respiratory Rate 16 11/27/17 07:23 Blood Pressure 147/94 H 11/27/17 07:23 O2 Sat (%) 98 11/27/17 07:23 O2 Delivery Mode Room Air Allergies/Adverse Reactions: No Known Allergies Allergy (Verified 11/27/17 07:26) Home Medications: Medication Instructions Recorded [place] Carbonate ER [Eskalith Cr 900 mg PO BID 07/24/15 450 mg (*)] QUEtiapine FUMARATE [Seroquel 200 50 mg PO HS 07/24/15 mg (*)] Promethazine HCl [Phenergan 25mg 25 mg PO TID PRN #10 tab 03/03/17 (*)] Ondansetron Odt [Zofran Odt 4 mg 4 mg PO Q6 PRN #12 tab 11/21/17 (*)] Promethazine HCl [Phenergan 25mg 25 mg PO Q8 PRN #12 tab 11/21/17 (*)] Sucralfate [Carafate Oral Liquid 10 ml PO QID PRN #240 ml 11/21/17 100 mg/ml] Medical Decision Making ED Course/Re-evaluation: In the emergency department I discussed possible etiologies with the patient and her father. I answered all her questions. I discussed THC use. An IV was placed. Laboratory studies were obtained. Patient states that held worked well for symptoms. The patient was given Haldol and normal saline. Patient's white count is 9. The patient's chemistry panel is notable for slightly low CO2 at 19. The patient's LFTs and lipase are normal. is negative. I rechecked the patient while here. She was doing better after the medication. On recheck the patient's abdomen is soft, nontender nondistended. Patient was given warnings prior to leaving. She will return with worsening symptoms. Differential Diagnosis: My differential includes but is not limited to pancreatitis, cholecystitis, small-bowel obstruction, cyclic vomiting syndrome, dehydration, perforation, peptic ulcer disease, GERD - Data Points Laboratory Results: Laboratory Results 11/27/17 07:40 11/27/17 07:40 11/27/17 11/27/17 11/27/17 07:40 07:40 07:40 WBC 9.92 10^3/uL H 10^3/uL (3.80-9.50) RBC 4.42 10^6/uL 10^6/uL (4.18-5.33) Hgb 13.2 g/dL g/dL (12.6-16.3) Hct 38.6 % % (38.0-47.0) MCV 87.3 fL fL (81.5-99.8) MCH 29.9 pg pg (27.9-34.1) MCHC 34.2 g/dL g/dL (32.4-36.7) RDW 13.3 % % (11.5-15.2) Plt Count 337 10^3/uL 10^3/uL (150-400) MPV 9.7 fL fL (8.7-11.7) Neut % (Auto) 68.3 % % (39.3-74.2) Lymph % (Auto) 22.1 % % (15.0-45.0) [place] % (Auto) 7.1 % % (4.5-13.0) Eos % (Auto) 1.2 % % (0.6-7.6) Baso % (Auto) 0.4 % % (0.3-1.7) Nucleat RBC Rel Count 0.0 % % (0.0-0.2) Absolute Neuts (auto) 6.78 10^3/uL H 10^3/uL (1.70-6.50) Absolute Lymphs (auto) 2.19 10^3/uL 10^3/uL (1.00-3.00) Absolute Monos (auto) 0.70 10^3/uL 10^3/uL (0.30-0.80) Absolute Eos (auto) 0.12 10^3/uL 10^3/uL (0.03-0.40) Absolute Basos (auto) 0.04 10^3/uL 10^3/uL (0.02-0.10) Absolute Nucleated RBC 0.00 10^3/uL 10^3/uL (0-0.01) Immature Gran % 0.9 % % (0.0-1.1) Immature Gran # 0.09 10^3/uL 10^3/uL (0.00-0.10) Sodium 141 mEq/L mEq/L (135-145) Potassium 3.7 mEq/L mEq/L (3.3-5.0) Chloride 107 mEq/L mEq/L (97-110) Carbon Dioxide 19 mEq/l L mEq/l (22-31) Anion Gap 15 mEq/L mEq/L (8-16) BUN 11 mg/dL mg/dL (7-23) Creatinine 0.8 mg/dL mg/dL (0.6-1.0) Estimated GFR > 60 Glucose 118 mg/dL H mg/dL (70-100) Calcium 9.6 mg/dL mg/dL (8.5-10.4) Total Bilirubin 0.4 mg/dL mg/dL (0.1-1.4) Conjugated Bilirubin 0.4 mg/dL mg/dL (0.0-0.5) Unconjugated Bilirubin 0.0 mg/dL mg/dL (0.0-1.1) AST 19 IU/L IU/L (14-46) ALT 19 IU/L IU/L (9-52) Alkaline Phosphatase 57 IU/L IU/L (38-126) Total Protein 6.8 g/dL g/dL (6.3-8.2) Albumin 4.0 g/dL g/dL (3.5-5.0) Lipase 198 IU/L IU/L (23-300) Beta HCG, Qual NEGATIVE Medications Given: Discontinued Medications Haloperidol Lactate (Haldol Injection) 2.5 mg IVP EDNOW ONE Stop: 11/27/17 07:48 Last Admin: 11/27/17 07:53 Dose: 2.5 mg Sodium Chloride (Ns) 1,000 mls @ 0 mls/hr IV ONCE ONE PRN Reason: Wide Open Stop: 11/27/17 07:49 Last Admin: 11/27/17 07:52 Dose: 1,000 mls Departure - Departure Disposition: Home, Routine, Self-Care Clinical Impression: Abdominal pain Qualifiers: Abdominal location: epigastric Qualified Code(s): R10.13 - Epigastric pain Condition: Good Instructions: Acute Nausea and Vomiting (ED), Acute Abdominal Pain (ED) Additional Instructions: Return with increasing pain, vomiting, inability to tolerate oral intake or any other concerns. Referrals: Pavan Ortiz MD [Medical Doctor] - 5-7 days, call for appt.
[2017-11-27] MEDS ORDERED: HALOPERIDOL LACT 5 MG/ML INJ IVP ONE (07:47)
[2017-11-27] MEDS ORDERED: NS 1,000 ML IV ONE ×2 (07:48→07:51)
[2017-11-27 07:59] LABS: PLATELET COUNT 337 10^3/uL (150-400)
[2017-11-27 08:59] VITALS: BP 118/78
== END 2017-11-27 08:57 | disposition home or self-care (01) ==
DX: R10.13 Epigastric pain (principal); R11.10 Vomiting, unspecified; Z87.891 Personal history of nicotine dependence
CPT/HCPCS: 96374; J1630